=== PATIENT | female | born 1945 | race African-American/Black ===

== ENCOUNTER → 2017-04-30 | Outpatient (CLI) | payer OTHER ==
[~2017-04-30] VITALS: Ht 152.4 cm; Wt 73.5 kg
[~2017-04-30] MED LIST: ALLEGRA180 MG; BACTRIM DS TAB1 EACH; BENADRYL25 MG PO; ESTRACE1 MG PO; ESTRACE2 MG PO; FLONASE 0.05%50 MCG NASAL; FLONASE16 GM; HYDROCHLOROTH12.5 MG PO; LIPITOR20 MG PO; LISINOPRIL-HCT1 EAC1; MACROBID 100 M100 M1 PO; MAXZIDE-25 MG1 EACH PO; MEDROLDOSEPACK PO; PEPCID40 MG PO; PREDNISONE 20 M20 M1 PO; PROAIR HFA8.5 GM INH; PROTONIX 20 MG20 M1 PO; SINGULAIR 10 MG10 M1 PO; SYMBICORT160 MCG/4. INH; ZANTAC 150MG T150 M1 PO
--- NOTE | ~2017-04-30 | S ---
[facility] [place] [address] SURGICAL PATH RPT PROCEDURE Name: HEIDI SORIA Room #: [facility].#: [id number] Admission: 04/30/17 Date of : 49 Discharge: Report #: [id number] Path Case #: [id number] PATHOLOGY REPORT COLLECTION DATE: 04/30/2017 RECEIVED DATE: 05/01/2017 SUBMITTING PHYS: Dr. Tyrel Espinoza OTHER PHYS: SPECIMEN(S) RECEIVED: A.Bx of duodenum B.Bx of random colon C.Bx of rectal polyp * * * * * * * * * * * * FINAL DIAGNOSIS: A. Small bowel mucosa, duodenum, endoscopic biopsy: - Negative for sprue; negative for villous blunting or increase in intraepithelial lymphocytes. B. Large intestine mucosa, random colon, endoscopic biopsy: - Mid focal active colitis, see comment. - Negative for dysplasia or malignancy. C. Polyp, rectal polyp, endoscopic biopsy: - Hyperplastic polyp. - Negative for dysplasia. COMMENT: Sections of colon biopsy tissues show scattered rare foci of cryptitis and increase in cellularity of the lamina propria. There are no granulomata, viral inclusions or parasitic organisms. The collagen layer underneath the epithelium is not thickened. There is no distortion in crypt architecture. There is no increase in intraepithelial lymphocytes as well. There is no evidence of dysplasia or malignancy. Findings may be suggestive of focal active colitis, diverticulits, medication induced colitis as well as reaction to bowel preparation. Please correlate clinically. PATHOLOGIST: Kathy You M.D. REPORT ELECTRONICALLY SIGNED BY: Kathy You M.D. DATE/TIME: 05/02/2017 13:00 * * * * * * * * * * * * GROSS PATHOLOGY: A. Received in formalin labeled "Heidi Yang BX of duodenum r/o sprue," are 4 segments of boyd soft tissue measuring 1.3 x 0.5 x 0.3 cm in aggregate dimensions and ranging from 0.3 to 0.[address] [address] SURGICAL PATH RPT PROCEDURE Name: HEIDI SORIA Kayla Room #: [facility].#: [id number] Admission: 04/30/17 Date of : 49 Discharge: Report #: [id number] Path Case #: [id number] maximum dimension. The specimen is submitted entirely in cassette A1. B. Received in formalin labeled "Heidi Soria BX of random colon," are 3 segments of boyd soft tissue measuring 1.0 x 0.2 x 0.3 cm in aggregate dimensions and ranging from 0.3 to 0.4 cm in maximum dimension. The specimen is submitted entirely in cassette B1. C. Received in formalin labeled "Heidi Soria BX of rectal polyp," is a segment of boyd soft tissue measuring 0.4 cm in maximum dimension. The specimen is submitted entirely in cassette C1. (TSD; 05/01/2017) CLINICAL HISTORY: Pre-OP DX: Hx of polyps, reflux Post-OP DX: Hx of diarrhea INITIAL CPT CODE(S): A; 20074 B; 91007 C; 76903 Professional services performed by [facility] at [facility] [address], [place] [address] Technical services performed by [facility] at [address] [place] [address], [facility] [address], [place] [address]. [facility] [address] [place] [address] PHONE: [phone] DIRECTOR: Fransisco Walker M.D. * * * END OF REPORT * * *
--- NOTE | ~2017-04-30 | P ---
[facility] [place] [address] PROCEDURE REPORT Name: MILTON CELIS Room #: REG [facility]#: [id number] Admission: 04/30/17 Attend Phys: Tyrel Duncan Discharge: Date of : 49 Report #: [id number] THIS REPORT FOR: //name// CC: Tyrel Espinoza FAM unknown Heather Manrique MD DATE OF SERVICE: 04/30/2017 PROCEDURE PERFORMED: Colonoscopy with biopsies. HISTORY OF PRESENT ILLNESS: The patient is a 71-year-old female with a history of chronic diarrhea, likely secondary to irritable bowel syndrome. Multiple regimens have been tried in the past without much improvement. She also has a history of colon polyps. No family history of colon cancer. DESCRIPTION OF PROCEDURE: The risks and benefits of the procedure were explained to the patient, those risks including but not limited to bleeding, perforation, the risk of sedation. She understood these risks and gave informed consent. Sedation was given using propofol per anesthesia. Next, a digital rectal exam was initially performed, which was normal. Next using a standard Fujinon colonoscope, the scope was placed in the patient's anus and advanced under direct vision to the cecum. The overall prep was excellent. The cecum and ileocecal valve were normal in appearance. Terminal ileum was intubated and normal in appearance. The ascending, transverse, descending and sigmoid colon were normal. Random biopsies were obtained to rule out the possibility of microscopic colitis. In the rectum, a single 3-mm sessile polyp was noted. This was removed with cold forceps. On retroflexion, no abnormalities were noted. The scope was then withdrawn and the procedure terminated. The patient tolerated the procedure well. IMPRESSION: 1. Small rectal polyp. 2. Otherwise, normal colonoscopy. RECOMMENDATIONS: 1. Await biopsy results. 2. May consider a trial of in the future. Thank you for allowing me to participate in her care. <ELECTRONICALLY SIGNED> By: Tyrel Espinoza MD 05/02/17 1151 [id number] Tyrel Espinoza MD /nt
--- NOTE | ~2017-04-30 | P ---
[facility] [place] [address] PROCEDURE REPORT Name: MILTON CELIS Room #: [facility]#: [id number] Admission: 04/30/17 Attend Phys: Tyrel Duncan Discharge: Date of : 49 Report #: [id number] THIS REPORT FOR: //name// CC: Tyrel Espinoza FAM unknown Heather Manrique MD DATE OF SERVICE: 04/30/2017 PROCEDURE PERFORMED: Upper endoscopy with biopsies and esophageal dilation. HISTORY OF PRESENT ILLNESS: The patient is a 71-year-old female with history of chronic diarrhea, gastroesophageal reflux disease and dysphagia. She has tried multiple medications for her diarrhea without much improvement. Plan is for EGD and colonoscopy today. DESCRIPTION OF PROCEDURE: The risks and benefits of the procedure were explained to the patient, those risks including but not limited to bleeding, perforation, the risk of sedation. She understood these risks and gave informed consent. Sedation was given using propofol per anesthesia. Next using a standard Fujinon upper endoscope, the scope was placed in the patient's mouth and advanced under direct vision through the esophagus, stomach and into the second portion of the duodenum. The larynx was normal in appearance. The esophagus was normal throughout. The GE junction was normal. Overall, the gastric mucosa was normal. The pylorus was normal and patent. The duodenal bulb, first and second portion were all normal. Biopsies of the second portion of the duodenum were obtained to rule out the possibility of celiac sprue. Due to her history of chronic diarrhea, the scope was then brought back up into the patient's stomach and a Savary guidewire was inserted through the scope, leaving the guidewire in place as the scope was removed. Next, a 48-[place] Savary dilation was then performed of the esophagus without difficulty. The wire and dilator were removed. The scope was reintroduced into the patient's stomach. There was no evidence of mucosal tear after dilation. The scope was then withdrawn and the procedure was terminated. The patient tolerated the procedure well. IMPRESSION: Normal upper endoscopy. RECOMMENDATIONS: 1. Await biopsy results. 2. Observe patient status post dilation. [facility] [address] [place] [address] PROCEDURE REPORT Name: MILTON CELIS Room #: REG [facility] Alpesh.#: [id number] Admission: 04/30/17 Attend Phys: Tyrel Duncan Discharge: Date of : 49 Report #: [id number] Thank you for allowing me to participate in her care. <ELECTRONICALLY SIGNED> By: Tyrel Espinoza MD 05/02/17 1151 [id number] Tyrel Espinoza MD /nt
== END | disposition home or self-care (01) ==
LOC: GI 07:48
DX: K58.0 Irritable bowel syndrome with diarrhea (principal); Z87.19 Personal history of other diseases of the digestive system; D12.8 Benign neoplasm of rectum; K21.9 Gastro-esophageal reflux disease without esophagitis; Z79.899 Other long term (current) drug therapy
CPT/HCPCS: 62110; 62900